=== PATIENT | female | born 1990 | race Caucasian/White ===

== ENCOUNTER 2016-05-12 19:00 | Emergency (ER) | payer OTHER ==
[~2016-05-12] VITALS: Ht 152.4 cm; Wt 78.5 kg
[~2016-05-12 19:00] MED LIST: NITROFURANTOIN100 M2 PO; [UNRECOGNIZED DRUG - OTHER] PO
[2016-05-12 19:06] VITALS: BP 126/71
--- NOTE | 2016-05-12 19:24 | NUR ---
TO ER BED 4
--- NOTE | 2016-05-12 19:28 | NUR ---
PT IS 6 MONTHS . STATES SHE FELL ASLEEP WITH COLORED CONTACTS IN, SHE AWOKE THIS MORNING, HAD DIFFICULT TIME GETTING THEM OUT. BOTH EYES ARE EXTREMELY RED AND VERY WATERY. BOTH EYES ARE EXTREMELY PAINFUL, 10/10 DENIES N/V/D; SKIN IS PINK/WARM/DRY; AAOX4 WITH EVEN AND STEADY GAIT; LUNGS CLEAR BL; HR EVEN AND REGULAR; PT DENIES ANY FEVER, CP, SOB, OR COUGH AT THIS TIME; PATIENT STATES PAIN OF 10/10 AT THIS TIME; VSS; PATIENT POSITIONED FOR COMFORT; HOB ELEVATED; BEDRAILS UP X2; BED DOWN. ER MD MADE AWARE OF PT STATUS.
[2016-05-12] MEDS ORDERED: TETRACAINE 0.5% OPTH SOL 2 ML BTL OP ONE (19:35)
[2016-05-12] MEDS ORDERED: FLUORESCEIN OPTH STRIP 1 MG OP ONE (19:35)
[2016-05-12] MEDS ORDERED: ACETAMINOPHEN/CODEINE 300/30MG 1 TAB PO ONE (20:05)
--- NOTE | 2016-05-12 20:05 | NUR ---
EYE DROPS PUT IN AT BEDSIDE BY DR STONE. PT TOLERATED WELL.
--- NOTE | 2016-05-12 20:23 | NUR ---
Patient discharged with v/s stable. Written and verbal after care instructions given and explained. Patient alert, oriented and verbalized understanding of instructions. Ambulatory with steady gait. All questions addressed prior to discharge. ID band removed. Patient advised to follow up with PMD. Rx of TYLENOL WITH CODEINE AND TOBRAMYCIN OPTHALMIC SOLUTION given. Patient educated on indication of medication including possible reaction and side effects. Opportunity to ask questions provided and answered.
[2016-05-12 20:26] VITALS: BP 126/71
== END 2016-05-12 20:26 | disposition home or self-care (01) ==
LOC: MED 19:00
DX: O26.891 Other specified pregnancy related conditions, first trimester (principal); H10.9 Unspecified conjunctivitis; Z3A.08 8 weeks gestation of pregnancy